=== PATIENT | male | born 1960 | race Caucasian/White ===

== ENCOUNTER 2017-03-23 10:45 | Emergency (ER) | payer SELFPAY ==
[2017-03-23] MEDS ORDERED: Pantoprazole Inj 40 MG in Normal Saline Flush 10 ML IVP ONE (10:51)
[2017-03-23] MEDS ORDERED: ASPIRIN 81 MG (BABY) CHEWABLE TABLET PO ONE (10:51)
[2017-03-23] MEDS ORDERED: NORMAL SALINE 10 ML SYRINGE FLUSH IVP PRN (10:51)
[2017-03-23] MEDS ORDERED: Sodium Chloride 0.9% 1,000 ML PRIMARY IV ONE (10:51)
--- NOTE | 2017-03-23 10:51 | PDOC ---
Chest Pain HPI - General Chief Complaint: Chest Pain Stated Complaint: CHEST PAIN ON AND OFF FOR THREE WEEKS Date Seen by Provider: 03/23/17 Time Seen by Provider: 10:51 Source: Patient Exam Limitations: POSITIVE: No limitations Treatment Prior to Arrival: REPORTS: None - History of Present Illness Initial Comments: Mr. kaylee velasquez is a 56-year-old man coming today with chest pain. The chest pain started about 7:00 AM this morning while he was driving in the car. They live in [place] and are driving to [place]. The pain is located in the left side of his chest radiated into his left arm. The pain was not exertional. It is not positional. It hurts worse when he pushes on the front of his chest. When the chest pain started he felt nauseated and short of breath although the nausea and shortness of breath have resolved by this point. The pain has been somewhat constant but slowly getting better and is now improved but still present to a lesser degree. He denies any current shortness of breath or nausea. He has no lower leg swelling or dizziness or lightheadedness. About 3 weeks ago had an episode of similar pain to resolve on its own and he never really found out what caused it. He had a stress test done about 6 months ago that was negative. He was quite a bit of increased life stressors in his life and they're on their way to [place] to visit his sister who is in ICU. 3 weeks ago he had extended family members pass away - Patient Home Medications Home Medications: Home Medications Acetaminophen-Cod #3 Tablet [Tylenol with Codeine #3 Tablet] 1 each PO PRN 03/23 Alprazolam 2 mg PO TID 03/23/17 Atenolol 50 mg PO DAILY 03/23/17 Naproxen 500 mg PO Q12H PRN 03/23/17 tiZANidine Tab [Zanaflex Tab] 4 mg PO Q8H 03/23/17 - Patient Allergies Allergies/Adverse Reactions: Allergies Allergy/AdvReac Type Severity Reaction Status Date / Time No Known Allergies Allergy Unverified 03/23/17 10:55 Past Medical History Cardiovascular History: Hypertension Psychiatric History: Anxiety Disorders Tobacco Use: Current Every Day Smoker Alcohol Use: Occasionally Substance Use Type: None Previous Surgical History: Yes Type / Date of Surgery: right knee surgery Additional Family History: Mom and sister have history of heart disease, dad of stroke Past Medical History Reviewed: Reviewed - No Changes Chest Pain PE - General Appearance General Appearance: REPORTS: Alert, Cooperative, No Acute Distress - HEENT HEENT: POSITIVE: Head Inspection Nml, Eyes Inspection Nml, Ears Inspection Nml, Nose Inspection Nml, Oral/Dental Inspect. Nml - Neck Neck: REPORTS: Normal Inspection - Respiratory Respiratory: REPORTS: No Respiratory Distress, Breath Sounds Normal - Cardiovascular Cardiovascular: REPORTS: Regular Rate and Rhythm, Heart Sounds Normal, Equal Pulses Peripheral Pulses: Radial (R): 2+, Radial (L): 2+ - Abdomen Abdomen: Soft: (All Quadrants), Normal Bowel Sounds: (All Quadrants), Denies Tenderness: (All Quadrants), No Guarding: (All Quadrants), No Rebound: (All Quadrants), No Palpable Pulse: (All Quadrants) - Skin Skin: REPORTS: Intact, Normal For Race, Warm, Dry, No Rash - Extremities Extremity: Non-Tender: (All Extremities), Normal ROM: (All Extremities), Normal Inspection: (All Extremities) Additional Extremities Details: no calf swelling or tenderness - Neurological / Psychological Neurological: POSITIVE: Affect Apporpriate, Oriented X3, patrol agent Normal As Tested, Motor Normal Chest Pain Progress - Results Reviewed by me Xrays/CTs/US Reviewed by me: Yes Radiology Findings: no acute intrathroacic abnormality Lab Results Reviewed: Yes Lab Results:: Laboratory Results 03/23/17 Range/Units 11:00 WBC 10.73 (4.8-10.8) 10^3/uL RBC 4.85 (4.70-6.10) 10^6/uL Hgb 14.7 (14.0-18.0) g/dL Hct 42.4 (42.0-52.0) % MCV 87.4 (80-90) FL MCH 30.3 (27-31) PG MCHC 34.7 (33-37) g/dL RDW Std Deviation 41.7 (39-50) fL RDW Coeff of Brooks 13.3 (11.5-14.5) % Plt Count 299 (140-350) 10*3/uL MPV 9.1 (7.4-12.2) FL Immature Gran % (Auto) 0.2 (0-5) % Neut % (Auto) 59.1 (50-80) % Lymph % (Auto) 29.1 (10-50) % [place] % (Auto) 7.5 (5-15) % Eos % (Auto) 3.6 (0-8) % Baso % (Auto) 0.5 (0-1) % Immature Gran # (Auto) 0.02 10*3/UL Neut # (Auto) 6.34 10*3/UL Lymph # (Auto) 3.12 10*3/uL [place] # (Auto) 0.81 H (0.3-0.8) 10*3/UL Eos # (Auto) 0.39 10*3/UL Baso # (Auto) 0.05 10*3/UL WBC Morphology Comment Normal morphology (NORM) Plt Morphology Comment Normal morphology (NORM) RBC Morph Comment Normal morphology (NORM) D-Dimer 0.49 (0.00-0.59) mg/L Sodium 139 (135-145) meq/L Potassium 4.4 (3.8-5.2) meq/L Chloride 104 (98-112) meq/L Carbon Dioxide 24 (23-33) meq/L Anion Gap 11 (5-20) BUN 19 (7-22) mg/dL Creatinine 1.0 (0.70-1.50) mg/dL Estimated GFR > 60 (>60 ml/min/1.73m(2)) BUN/Creatinine Ratio 19.00 (6-20) Glucose 106 (78-110) mg/dL Calculated Osmolality 289.0 (267-292) mOsm/kg Calcium 9.7 (8.7-10.7) mg/dL Total Bilirubin 0.7 (0.3-1.2) mg/dL AST 30 (21-57) IU/L ALT 26 (21-72) IU/L Alkaline Phosphatase 75 (38-126) IU/L Troponin I < 0.012 (< 0.040) ng/mL Total Protein 8.5 H (6.1-8.0) g/dL Albumin 4.6 (3.5-4.8) g/dL Globulin 3.9 (2.50-4.10) g/dL Albumin/Globulin Ratio 1.10 L (1.3-2.0) mg/g EKG Interpreted/Reviewed By Me:: Yes (sinus rate 63, no ST segment elevation, no t-wave inversion) - Patient's Progress Re-Examine Time: 11:40 Re-Examine Comment: I recommended 3 hour repeat troponin at the very least, as his story was concerning and he has some risk factors. Mr Rodríguez declined this, citing his desire to get to his sister's in [place] as soon as possible. We talked about risk and benefit of leaving AMA, including the possibility that he is in the early stages of a heart attack and he could suffer heart damage or . He verbalized his understanding and still wanted to leave AMA. His pain was much improved. Patient Care Time - Estimated PCT Patient Care Time (In Minutes): 30 Vital Signs - Recent Vital Signs Vital Signs: Vital Signs (Last 8 hours) Temp Pulse Resp BP Pulse Ox 03/23/17 11:00 97.7 F 65 18 167/112 93 - VS Reviewed Vital Signs Reviewed: Yes Discharge Clinical Impression: Chest pain Discharge Disposition: Against Medical Advice Condition: Fair Patient Instructions Given at Discharge: Chest Pain (ED) Additional Instructions: We recommended you stay for a repeat lab draw in 3-4 hours. If the pain gets worse, then stop at the closest emergency department for a repeat EKG and a "Troponin" blood test. Take your home medicines. Your Xray, labs, and EKG right now were all reassuring.
[2017-03-23] MEDS: NITROGLYCERIN 0.4 MG SL TAB (BOTTLE OF 3) SL PRN ×3 (11:06→11:16)
[2017-03-23 11:13] LABS: BASOPHILS # (AUTO) 0.05 10*3/UL; BASOPHILS % (AUTO) 0.5 % (0-1); EOSINOPHILS # (AUTO) 0.39 10*3/UL; EOSINOPHILS % (AUTO) 3.6 % (0-8); HEMATOCRIT 42.4 % (42.0-52.0); HEMOGLOBIN 14.7 g/dL (14.0-18.0); LYMPHOCYTES # (AUTO) 3.12 10*3/uL; MEAN CORPUSCULAR HEMOGLOBIN 30.3 PG (27-31); MEAN CORPUSCULAR HGB CONC 34.7 g/dL (33-37); MEAN CORPUSCULAR VOLUME 87.4 FL (80-90); MEAN PLATELET VOLUME 9.1 FL (7.4-12.2); MONOCYTES # (AUTO) 0.81 10*3/UL (0.3-0.8); MONOCYTES % (AUTO) 7.5 % (5-15); NEUTROPHILS # (AUTO) 6.34 10*3/UL; NEUTROPHILS % (AUTO) 59.1 % (50-80); RED BLOOD COUNT 4.85 10^6/uL (4.70-6.10)
[2017-03-23 11:14] VITALS: RESP 18; TEMP 97.7
[2017-03-23 11:14] LABS: PLATELET MORPHOLOGY COMMENT NORMAL MORPHOLOGY (NORM); RBC MORPHOLOGY COMMENT NORMAL MORPHOLOGY (NORM); WBC MORPHOLOGY COMMENT NORMAL MORPHOLOGY (NORM)
[2017-03-23 11:20] LABS: BLOOD UREA NITROGEN 19 mg/dL (7-22); CALCIUM 9.7 mg/dL (8.7-10.7); EST GLOMERULAR FILTRATION > 60 (>60 ml/min/1.73m(2)); SERUM ALBUMIN 4.6 g/dL (3.5-4.8)
--- NOTE | 2017-03-23 13:32 | EKG ---
[address] [place] [address] Measurements Intervals [place] Rate: 63 P: 19 FL: 172 QRS: -10 QRSD: 94 T: 15 QT: 396 QTc: 404 Interpretive Statements SINUS RHYTHM POSSIBLE ANTERIOR MYOCARDIAL INFARCTION [30 ms Q WAVE IN V3/V4, OR R < 0.2 mV IN V4], OF INDETERMINATE AGE No previous ECG available for comparison and no acute injury pattern Electronically Signed On 03-25-17 08:05:58 MDT by Miguelito Pena MD [email or web address]
--- NOTE | 2017-03-24 21:51 | DI ---
[facility] CHEST X-RAY, 03/23/2017 10:51 AM : Clinical History: Chest pain Previous Exam: None at this facility. There is no acute soft tissue or bony abnormality. Heart size is normal. Lungs are clear. Mediastinal structures are normal. There are no pulmonary nodules. Reading: Normal chest x-ray.
== END 2017-03-23 11:53 | disposition left against medical advice (07) ==
LOC: ER 10:45
DX: R07.9 Chest pain, unspecified (principal); R06.02 Shortness of breath; R11.0 Nausea; Z72.0 Tobacco use
CPT/HCPCS: 71010; 80053; 84484; 85025; 85379; 93005; 93010; 96361; 96374; 99284; J3490; J7030